=== PATIENT | female | born 1950 | race Caucasian/White ===

== ENCOUNTER 2023-06-15 09:06 | Outpatient (REF) | payer MEDICARE, SELFPAY ==
--- NOTE | ~2023-06-15 | XR_ITS ---
EXAMINATION: XR HIP, LEFT CLINICAL INFORMATION: Pain in left hip. COMPARISON: None available. TECHNIQUE: AP view of the pelvis and frog-lateral view of the left hip. FINDINGS: The bones are diffusely demineralized. Degenerative changes in the imaged lower lumbar spine. Degenerative changes in the bilateral sacroiliac joints. Extensive atherosclerotic calcifications. Moderate degenerative changes with joint space narrowing on AP view of the right hip. Advanced degenerative changes with joint space narrowing and hypertrophic change in the left hip. Dense soft tissue calcifications adjacent to the left hip. XR/XR hip LT min 2V IMPRESSION: Advanced degenerative changes in the left hip. Correlation with clinical exam recommended to determine further management. If there is concern for fracture or other underlying pathology, MRI should be obtained.
== END 2023-06-15 09:07 | disposition home or self-care (01) ==
LOC: HO.HOSX 09:06
PROVIDERS: Visit Provider Orthopaedic Surgery
DX: M25.552 Pain in left hip (principal)
CPT/HCPCS: 73502; 99202

== ENCOUNTER 2023-06-15 12:20 | Outpatient (AMB) | payer MEDICARE, SELFPAY ==
--- NOTE | 2023-06-15 12:23 | A.OFFVIS_ITS ---
Intake Vital Signs 06/15/23 12:34 Height 5 ft 2 in Weight 236 lb BMI 43.2 Intake Visit Reasons: [employer]- LT hip pain Intake Note: Sharon correa 72 year old female presents today as a new patient for an evaluation of left hip pain. Patient reports pain present for about 3 weeks, states noticed pain getting in and out of her car. States not sure if related to her left knee due to bone on bone. Complaints of a tightening sensation in her back with walking. Finds some relief with Tylenol. She uses a cane to ambulate. She has taken Tylenol which gives only mild relief. Allergies NARCOTICS Allergy (Intermediate, Uncoded 06/15/23 12:52) SENSATIVE - DROPS BP OR MAKES HER NAUSEATED Lisinopril Allergy (Unknown, Uncoded 06/15/23 12:52) cough Molds Allergy (Unknown, Uncoded 06/15/23 12:52) Unknown Oxycodone Allergy (Unknown, Uncoded 06/15/23 12:52) Hypotension Statin Allergy (Unknown, Uncoded 06/15/23 12:52) myalgia Medication List - Last Reconciled 06/15/23 by Danny Lujan MD amlodipine 10 mg PO DAILY carvedilol 12.5 mg PO BID cholecalciferol (vitamin D3) (Vitamin D3) 50 mcg PO DAILY losartan 100 mg PO DAILY magnesium 200 mg PO DAILY pantoprazole 40 mg PO DAILY spironolactone 25 mg PO DAILY PFSH Surgical History (Updated 06/15/23 @ 12:50 by ASHWINI Can) Hx of colonoscopy History of endoscopy Hx of cholecystectomy History of lithotripsy Hx of hysterectomy Hx of removal of cyst Hx of total knee replacement (Updated 06/15/23 @ 12:31 by ASHWINI Can) Patient Tobacco Use Status: Never used Tobacco Current occupational status: retired Physical Exam Vital Signs: BMI result Body Mass Index 43.2 Const Other: Well-nourished well-developed very friendly female awake alert and oriented x3 in no acute distress Extrem Other: Bilateral lower extremity examination shows good capillary refill, no skin lesions noted, normal sensation light touch Left hip examination shows almost full range of motion when compared to her right hip, mild discomfort with range of motion, tenderness over her bursa, no overlying skin lesions Results Reviewed Results Reviewed: X-rays of the patient's left hip show moderate diffuse joint space narrowing, no acute bony abnormalities Assessment & Plan Assessment & Plan (1) Left hip pain: Code(s): M25.552 - Pain in left hip Plan Ms. Michelle in the the presents with left hip pain due to degenerative joint disease as well as greater trochanteric bursitis. She also has intermittent low back pain most likely due to degenerative disc disease. I had a lengthy discussion with the patient regarding the treatment options. I did give her a prescription for a Medrol Dosepak. Activity modifications were discussed at length with the patient. She will follow up with me on an as-needed basis should her symptoms not plateau at an unacceptable level over the next few weeks. At that time we will further discuss the risks and benefits of a cortisone injection. She wishes to hold off on an injection today. Feel free to call me at any time should questions regarding her orthopedic management arise. Thank you very much for asking me to see this very friendly patient. I spent 22 minutes in reviewing the patient's records and imaging studies, seeing the patient and documenting in the medical record. Orders: Orders XR hip LT min 2V Today M25.552 - Pain in left hip Medications: New methylprednisolone (Medrol ([place]inder)) PO PER PKG DIR 21 ea 0RF Coding Level of Care Code New Pt Level 2 (74254) Diagnoses Left hip pain M25.552
[2023-06-15 12:34] VITALS: BMI 43.2
== END 2023-06-15 13:23 | disposition home or self-care (01) ==
PROVIDERS: Visit Provider Orthopaedic Surgery
DX: M25.552 Pain in left hip (principal)
CPT/HCPCS: 99202